=== PATIENT | male | born 1960 | race Two or more races ===

== ENCOUNTER → 2024-11-01 | Outpatient (CLI) | payer MEDICAID, SELFPAY ==
--- NOTE | 2024-11-01 13:47 | XR_ITS ---
Examination: Shoulder,left, 3 views Technique: Shoulder AP internal rotation, AP external rotation, Y view shoulder, 3 views Exam date and time :November 01, 2024 1323 hours INDICATIONS: Shoulder pain beginning 10 days ago. FINDINGS: Moderate narrowing glenohumeral joint Mild calcific tendinitis No fracture or shoulder dislocation IMPRESSION: Moderate narrowing glenohumeral joint Mild calcific tendinitis
== END | disposition home or self-care (01) ==
PROVIDERS: PCP Physician Assistant; Referring Provider Physician Assistant; Visit Provider Physician Assistant
DX: M75.32 Calcific tendinitis of left shoulder (principal); M25.812 Other specified joint disorders, left shoulder
CPT/HCPCS: 73030

== ENCOUNTER 2025-02-06 16:54 | Emergency (ER) | payer MEDICAID, SELFPAY ==
[2025-02-06 17:46] VITALS: BP 120/74; PULSE 76; RESP 18; TEMP 36.8; O2SAT 99; BMI 31.7
--- NOTE | 2025-02-06 17:49 | XR_ITS ---
Examination: CT abdomen with intravenous contrast CT pelvis with intravenous contrast 2-D coronal reconstructions 2-D sagittal reconstructions Date and time of exam:February 06, 2025 at 0814 hours INDICATIONS: Scrotal swelling and pain beginning 2 days ago. CTDI: vol (mGy) 7.13 DLP: (mGycm) 449 Technique: Multiple axial sections of the abdomen and pelvis have been obtained. 64 slice high-resolution scanner used. 3 mm axial sections have been obtained, post intravenous injection of 60 cc of Isovue-370 2-D sagittal, coronal reconstructions obtained. Low dose protocols were performed. One or more of the following dose reduction techniques were used; automated exposure control, adjustment of the mA and/or KV according to patient size, use of iterative reconstruction technique. Findings: No liver or splenic lesions No gallstones. Aorta normal size Mild perinephric stranding Small fat-containing umbilical hernia Normal appendix. Intact urinary bladder. Cellulitis left groin left perineum extending into the scrotal sac No soft tissue abscess IMPRESSION: Prominent cellulitis left groin left perineum extending into the scrotum, recommend testicular sonography follow-up
--- NOTE | 2025-02-06 17:49 | XR_ITS ---
Examination: PA lateral chest 2 views TECHNIQUE: Upright PA and lateral chest 2 views Date and time: February 06, 2025 1813 hours Comparison October 20, 2008 INDICATIONS: Increasing body swelling over the last 2 days. FINDINGS: Normal heart size. Lungs are clear. Mild thoracic spondylosis IMPRESSION: No active disease.
--- NOTE | 2025-02-06 17:49 | PD.EDRME ---
Rapid Medical Screening Exam RME Arrival date/time: 02/06/25 16:54 64-year-old male presents to the emergency department today with complaints of swelling and pain to his inguinal region patient has cellulitis and swelling inguinal region Chief Complaint: Flu Like Symptoms Vital signs: Vital Signs Temperature 98.3 F 02/06/25 17:46 Pulse Rate 76 02/06/25 17:46 Respiratory Rate 18 02/06/25 17:46 Blood Pressure 120/74 02/06/25 17:46 Pulse Oximetry (%) 99 02/06/25 17:46 Oxygen Delivery Method Room Air 02/06/25 17:46
[2025-02-06] MEDS: HYDROcodone/APAP 5/325 TABLET 1 TAB PO (18:06)
[2025-02-06 18:39] LABS: Lactate (Lactic Acid) 2.1 mMol/L (0.4-2.0)
[2025-02-06 18:41] LABS: Basophils # (Auto) 0.1 Thou/mm3 (0.0-0.2); Basophils % (Auto) 0 % (0-2.5); Eosinophils # (Auto) 0.1 Thou/mm3 (0.0-0.5); Eosinophils % (Auto) 0 % (0-10); Hematocrit 41.2 % (41.0-53.0); Hemoglobin 14.2 g/dL (13.5-16.0); Immature Granulocytes % (Auto) 1 % (0-0); Immature Granulocytes Auto 0.22 Thou/mm3 (0.00-0.00); Lymphocytes # (Auto) 1.3 Thou/mm3 (1.0-4.8); Lymphocytes % (Auto) 6 % (10-50); Mean Corpuscular HGB Conc 34.5 g/dl (31.0-37.0); Mean Corpuscular Volume 87 fL (80-100); Monocytes # (Auto) 1.4 Thou/mm3 (0.0-0.8); Monocytes % (Auto) 7 % (0-12); Neutrophils # (Auto) 17.2 Thou/mm3 (1.8-7.7); Neutrophils % (Auto) 85 % (37-80); Nucleated Red Blood Cell % 0 /100 WBC (0); Platelet Count 171 Thou/mm3 (140-440); RDW Standard Deviation 43.6 fL (35.1-43.9); Red Blood Count 4.73 Miln/mm3 (4.50-5.90); White Blood Count 20.2 Thou/mm3 (3.8-10.6)
[2025-02-06 19:01] LABS: Glucose Estimated Average 123 mg/dL (80-131); Hemoglobin A1C 5.9 % Hgb (4.8-6.0)
[2025-02-06 19:10] LABS: Alanine Aminotransferase 16 U/L (10-49); Albumin, Serum 4.3 gm/dL (3.4-4.8); Albumin/Globulin Ratio 1.5 (1.2-2.2); Alkaline Phosphatase 63 U/L (46-116); Anion Gap 12 (7-16); Aspartate Amino Transferase 14 U/L (0-34); BUN/Creatinine Ratio 12 Ratio (12-20); Bilirubin,Total 1.3 mg/dL (0.3-1.2); Blood Urea Nitrogen 14 mg/dL (9-23); Calcium 8.6 mg/dL (8.3-10.6); Calcium (Corrected) 8.6 mg/dL (8.5-10.1); Carbon Dioxide 21.8 mMol/L (20.0-31.0); Chloride 98 mMol/L (98-107); Creatinine (Component) 1.2 mg/dL (0.6-1.3); Estimated Creatinine Clearance 61.6 mL/min (>60); Globulin 2.8 gm/dL (2.3-3.5); Glucose 187 mg/dL (74-106); Osmolality,Calculated 270 (275-295); Potassium 4.2 mMol/L (3.4-5.1); Procalcitonin 0.83 ng/ml (0.0-0.49); Sodium 132 mMol/L (136-145); Total Protein 7.1 gm/dL (5.7-8.2); eGFR > 60 See Note
--- NOTE | 2025-02-06 19:56 | PD.EDABDPN ---
ED Abdominal Pain RME/HPI General Chief Complaint: Flu Like Symptoms Stated complaint: FLU LIKE SYMPTOMS, PELVIC PAIN Time seen by provider: 02/06/25 19:09 Arrival date/time: 02/06/25 16:54 Limitations: no limitations RME / HPI RME / HPI narrative: DR. MALAGON MAIN ED EVALUATION: 64 year old male with past medical history significant for diabetes mellitus type 2, hypertension, and hypercholesterolemia presents to the Emergency Department with complaint of swelling and pain to his inguinal area. Related Data Home Medications ?Medication ?Instructions ?Recorded ?Confirmed lovastatin 20 mg tablet 20 mg PO HS #0 tabs 05/07/15 03/06/23 lisinopril 20 mg tablet 20 mg PO QDAY #0 tabs 10/13/16 03/06/23 pantoprazole 40 mg tablet,delayed 40 mg PO QDAY ##0 10/13/16 03/06/23 release (Protonix) tamsulosin 0.4 mg capsule 0.4 mg PO QDAY 03/27/20 03/06/23 finasteride 5 mg tablet 5 mg PO QDAY 05/13/22 03/06/23 Allergies Allergy/AdvReac Type Severity Reaction Status Date / Time No Known Allergies Allergy Verified 12/01/22 16:47 Review of Systems Review of Systems Systems Reviewed: All systems reviewed, normal except as documented Narrative Review of Systems: GEN: No fever, no chills, no weight loss EYES: No discharge, no visual changes, no pain HEENT: No ear pain, no congestion, no sore throat PULM: No shortness of breath, no cough, no congestion CV: No chest pain, no dyspnea on exertion, no palpitations GI: No nausea, no vomiting, no diarrhea, no pain, no constipation : No frequency, no urgency and no dysuria MUSC/SKEL: No joint pain, no back pain SKIN: No rash. + swelling and pain to his inguinal area PSYCH: No hallucinations, no depression HEME/LYMPH: No easy bleeding or bruising tendencies NEURO: No weakness, no headache Past Medical History Past Medical History CARDIAC: Positive Hypercholesterolemia and Hypertension ENT: Positive Cataracts (OD IOL) ENDOCRINE: Positive Endocrine Disorders and Diabetes Mellitus Type 2 Family History FAMILY HISTORY: Positive Family Cardiac Disorders (father DIAZ) Surgical History SURGICAL: Positive Eye Surgery (Bleph/Pterygium) Social History SMOKING STATUS: Never smoker SUBSTANCE USE: does not use ALCOHOL: Never ED Exam General Limitations: Present no limitations General appearance: Present alert and other (Slightly uncomfortable but not toxic appearing. Not diaphoretic.) Head Head exam: Present atraumatic, normocephalic and normal inspection Eye Eye exam: Present normal appearance and EOMI ENT ENT exam: Present normal exam, normal oropharynx and mucous membranes moist Neck Neck exam: Present normal inspection, full ROM and trachea midline Chest Chest inspection: Present normal inspection and symmetric chest wall rise Respiratory Respiratory exam: Present normal lung sounds bilaterally Cardiovascular Cardiovascular exam: Present regular rate, normal rhythm and normal heart sounds Abdominal Exam Abdominal exam: Present soft and normal bowel sounds Abdominal tenderness: Present suprapubic (Minimal tenderness palpation over the erythema over the suprapubic area.) exam: Present normal testicular lie; Absent testicular tenderness, urethral discharge or scrotal swelling Expanded Exam exam: Present other (cellulitis and swelling inguinal region) image:  1. 15 cm x 6 cm well-demarcated erythema. No fluctuance. No drainage. No scrotal edema, tenderness palpation, or overlying crepitus. Perineal area is visualized without tenderness or erythema. Extremities Exam Extremities exam: Present normal inspection and full ROM Back Exam Back exam: Present normal inspection and full ROM Neurological Exam Neurological exam: Present alert, oriented X3 and CN II-XII intact Psychiatric Psychiatric exam: Present normal affect and normal mood Skin Skin exam: Present erythema and other (See scrotal exam) Course Course Course Narrative: 2120: Sepsis alert initiated. Orders made at this time are congruent with ED Adult Sepsis Order List. Re-evaluation is to be completed. 2204: Sepsis reassessment performed consisting of lab review, vitals, physical exam including auscultation of heart, lungs, and visual evaluation of capillary refills, mucosal membranes and extremities. Quality Measures none Orders Category Date Time Status Bedside COVID-19 Antigen Test NOW Care 02/06/25 17:49 Completed Bedside Influenza A&B Antigen Test NOW Care 02/06/25 17:[address] Screening NOW Care 02/06/25 17:49 Completed Hourly Team Members STAT Care 02/06/25 21:18 Completed Continuous Pulse Oximetry STAT Care 02/06/25 21:18 Completed EKG (ED ONLY) *Do not use* NOW Care 02/06/25 21:18 Completed In and Out Catheter X1PRN Care 02/06/25 21:18 Completed Insert IV NOW Care 02/06/25 21:18 Completed NPO STAT Care 02/06/25 21:18 Completed Strict Intake and Output Routine Care 02/06/25 21:[address] abdomen pelvis w con Stat Exams 02/06/25 17:49 Completed EKG (ED Only) Stat Exams 02/06/25 21:18 Draft US testicular Stat Exams 02/06/25 20:52 Completed XR chest 2V Stat Exams 02/06/25 17:49 Completed A1C [Glycohemoglobin w (eAG)] Stat Lab 02/06/25 18:30 Completed B-Type Natriuretic Peptide Stat Lab 02/06/25 21:39 Completed Blood Culture (Lab) Stat Lab 02/06/25 18:30 Received Blood Culture (Lab) Stat Lab 02/06/25 21:39 Received CBC Stat Lab 02/06/25 18:30 Completed Comprehensive Metabolic Panel Stat Lab 02/06/25 18:30 Completed LDH (Lactate Dehydrogenase) Stat Lab 02/06/25 21:44 Completed Lactate (Lactic Acid) Stat Lab 02/06/25 18:30 Completed Lactic Acid, 3 HR Stat Lab 02/06/25 21:44 Completed Lipase Stat Lab 02/06/25 21:44 Completed Magnesium Stat Lab 02/06/25 21:44 Completed Partial Thromboplastin Time Stat Lab 02/06/25 21:44 Completed Phosphorous Stat Lab 02/06/25 21:44 Completed Procalcitonin Stat Lab 02/06/25 18:30 Completed Prothrombin Time with INR Stat Lab 02/06/25 21:44 Completed Troponin I Stat Lab 02/06/25 21:44 Completed Urinalysis Stat Lab 02/06/25 19:45 Completed Urine Culture Stat Lab 02/06/25 19:45 Received Acetaminophen Ivpb [Ofirmev Inj] Med 02/07/25 02:09 Discontinued 1,000 mg in 100 ml IV X1 Clindamycin/Ns 600 mg Ivpb [Cleocin/Ns Ivpb] Med 02/07/25 02:09 Discontinued 600 mg in 50 ml IV Q8HR HYDROcodone*/APAP 5/325 [[place] 5/325] Med 02/06/25 17:56 Discontinued 1 tab PO X1 ONE Ketorolac Inj [Toradol Inj] Med 02/07/25 02:08 Discontinued 30 mg IVP X1 ONE Sodium Chloride 0.9% 1000 ml [Ns] 1,776 ml Med 02/06/25 21:17 Discontinued IV 1,776 mls/hr Vancomycin Inj 1,000 mg Med 02/06/25 21:16 Discontinued Sodium Chloride 0.9% 250 ml [Ns] 250 ml IV X1 cefTAZidime 1 gm Med 02/06/25 21:30 Discontinued Sodium Chloride 0.9% [Ns] 50 ml IV X1 cefTRIAXone/D5w 1gm IV premix [Rocephin/D5w 1gm IV Med 02/06/25 20:04 Discontinued premix] 1 gm in 50 ml IV X1 Oxygen Delivery NOW RT 02/06/25 21:18 Completed Vital Signs Vital signs: Vital Signs Temperature 98.3 F 02/06/25 17:46 Pulse Rate 76 02/06/25 17:46 Respiratory Rate 18 02/06/25 17:46 Blood Pressure 120/74 02/06/25 17:46 Pulse Oximetry (%) 99 02/06/25 17:46 Oxygen Delivery Method Room Air 02/06/25 17:46 Abdominal Pain MDM MDM Narrative MDM Narrative:: 64-year-old male with history of type 2 diabetes on metformin coming in with 2-day history of suprapubic cellulitis extending into the left groin area. Patient has a white count of 20,000 with an elevated lactate of 2.1. Procalcitonin is elevated at 0.83. CT scan showing cellulitis with extension into the perineum however clinically the patient does not have foreign years gangrene and testicular ultrasound shows no scrotal or testicular vomit at this time. Patient remains normotensive without tachycardia, the patient is given 30 mL/kg ideal body weight normal saline bolus and treated with 2 g of cefepime and 1 g of vancomycin. Pain is controlled at this time. Urinalysis has 1+ protein otherwise no evidence of UTI. Sodium is slightly decreased at 132 and glucose slightly elevated 187 0034: Spoke with [facility] transfer center. Awaiting callback. 0209: Patient now has a fever of 101.2. Tylenol ordered. He is not hypotensive or tachycardic. 0257: Dr. Chong, hospitalist from [facility], accepts the patient for transfer. Jennifer Gregory am scribing for and in the presence of Dr. Malagon. Patient data External records reviewed:: [facility] previous records (Reviewed last urology note by Dr. Boateng, dated 03/07/23.) Clinical information provided by:: patient Social determinants that could affect healthcare access:: none Patient has the following chronic illnesses:: Diabetes mellitus type 2, hypertension, and hypercholesterolemia. How is presenting disease/condition affected by chronic disease/condition?: exacerbated by Evaluation data The following diagnostics were reviewed and interpreted by me:: lab results and radiology exam(s) Lab and/or radiology exams considered but not ordered:: none Interpretation Summary: Procedure(s): US testicular Accession Number(s): [id number] cc: Elyssa Moss; Misael Tony MD; Noah Alamo MD~ Examination: Testicular sonography TECHNIQUE: Amaral scale sonographic images testes, assessment arterial inflow and venous outflow Doppler spectrum analysis color flow analysis Examination time: February 06, 2025 205 hours INDICATIONS: Left groin swelling and pain 2 days FINDINGS: Right testis is 4.1 cm epididymis 22 mm Right epididymal cyst 16 mm Arterial flow to the testicle No testicular mass Mild hydrocele. Left testis is 3.2 cm epididymis 19 mm Multiple epididymal cysts, the largest 8 mm Appendix testis 12 x 10 mm Arterial flow to the testicle Testicular cyst 4 mm Appendix testis 12 mm Moderate hydrocele Left groin edema with mildly prominent lymph nodes, no left groin abscess IMPRESSION: No testicular torsion or testicular mass Bilateral benign epididymal cysts Small testicular cyst Moderate left hydrocele Left groin edema no abscess Dictated By: Misael Tony MD Procedure(s): XR chest 2V Accession Number(s): [id number] cc: Elyssa Moss; Jordan (MATTHEW),Chencho CASTRO; Misael Tony MD~ Examination: PA lateral chest 2 views TECHNIQUE: Upright PA and lateral chest 2 views Date and time: February 06, 2025 1813 hours Comparison October 20, 2008 INDICATIONS: Increasing body swelling over the last 2 days. FINDINGS: Normal heart size. Lungs are clear. Mild thoracic spondylosis IMPRESSION: No active disease. Dictated By: Misael Tony MD Procedure(s): CT abdomen pelvis w con Accession Number(s): [id number] cc: Elyssa Moss; Jordan (MATTHEW),Chencho CASTRO; Misael Tony MD~ Examination: CT abdomen with intravenous contrast CT pelvis with intravenous contrast 2-D coronal reconstructions 2-D sagittal reconstructions Date and time of exam:February 06, 2025 at 0814 hours INDICATIONS: Scrotal swelling and pain beginning 2 days ago. CTDI: vol (mGy) 7.13 DLP: (mGycm) 449 Technique: Multiple axial sections of the abdomen and pelvis have been obtained. 64 slice high-resolution scanner used. 3 mm axial sections have been obtained, post intravenous injection of 60 cc of Isovue-370 2-D sagittal, coronal reconstructions obtained. Low dose protocols were performed. One or more of the following dose reduction techniques were used; automated exposure control, adjustment of the mA and/or KV according to patient size, use of iterative reconstruction technique. Findings: No liver or splenic lesions No gallstones. Aorta normal size Mild perinephric stranding Small fat-containing umbilical hernia Normal appendix. Intact urinary bladder. Cellulitis left groin left perineum extending into the scrotal sac No soft tissue abscess IMPRESSION: Prominent cellulitis left groin left perineum extending into the scrotum, recommend testicular sonography follow-up Dictated By: Misael Tony MD Medications / Prescriptions Medications or Prescriptions considered but not ordered:: none Medication administrations:: Medication Administration History Discontinued Medications Hydrocodone Bitart/Acetaminophen (Hydrocodone/Apap 5/325 Tablet) 1 tab PO X1 ONE Stop: 02/06/25 17:57 Last Admin: 02/06/25 18:06 Dose: 1 tab Documented By: Ceftriaxone Sodium/Dextrose (Rocephin/D5w 1gm Iv Premix) 1 gm in 50 mls @ 100 mls/hr IV X1 ONE Stop: 02/06/25 20:33 Last Admin: 02/06/25 22:09 Dose: Not Given Documented By: AM Non-Admin Reason: Discontinued Vancomycin HCl 1,000 mg/ (Sodium Chloride) 250 mls @ 150 mls/hr IV X1 ONE Stop: 02/06/25 22:55 Last Infusion: 02/07/25 02:02 Dose: Infused Documented By: Admin: 02/06/25 22:50 Dose: 150 mls/hr Documented By: AM Sodium Chloride (Ns) 1,776 mls @ 1,776 mls/hr 30 ml/kg infuse over 60 min (1776 ml) IV .Q1H ONE Stop: 02/06/25 22:16 Last Infusion: 02/07/25 00:45 Dose: Infused Documented By: Admin: 02/06/25 22:08 Dose: 1,776 mls/hr Documented By: AM Ceftazidime 1 gm/ Sodium (Chloride) 50 mls @ 100 mls/hr IV X1 ONE Stop: 02/06/25 21:59 Last Infusion: 02/06/25 22:43 Dose: Infused Documented By: Admin: 02/06/25 22:09 Dose: 100 mls/hr Documented By: AM Acetaminophen (Ofirmev Inj) 1,000 mg in 100 mls @ 250 mls/hr IV X1 ONE Stop: 02/07/25 02:32 Last Infusion: 02/07/25 03:13 Dose: Infused Documented By: Admin: 02/07/25 02:45 Dose: 250 mls/hr Documented By: AM Clindamycin/Sodium Chloride (Cleocin/Ns Ivpb) 600 mg in 50 mls @ 100 mls/hr IV Q8HR TREVON Stop: 02/14/25 02:08 Ketorolac Tromethamine (Ketorolac Inj 30 Mg/Ml Vial) 30 mg IVP X1 ONE Stop: 02/07/25 02:09 Last Admin: 02/07/25 02:33 Dose: 30 mg Documented By: AM see above Consultations Consultation(s) initiated? (list below): Yes Diagnosis Differential diagnosis abdominal pain: other (testicular cyst, cellulitis, groin edema) Most likely diagnosis given after review of the tests above:: see below Admission Indicated Admission indicated?: not indicated Explain why admission is indicated or not indicated:: Patient needs higher level of care and will be transferred. Admission Request Was there a request for admission?: No Disposition Plan Disposition Plan: Transfer Critical Care Time Critical Care Time Critical Care Time: Yes Total Critical Care Time (min.): 30 Attestation: For sepsis The high probability of sudden, clinically significant deterioration in the patient?s condition required the highest level of my preparedness to intervene urgently. The services I provided to this patient were to treat and/or prevent clinically significant deterioration. Services included the following: chart data review, reviewing nursing notes and/or old charts, documentation time, human performance consultant collaboration regarding findings and treatment options, medication orders and management, direct patient care, vital sign assessments and ordering, interpreting and reviewing diagnostic studies and lab tests. Aggregate critical care time includes only time during which I was engaged in work directly related to the patient?s care, as described above, whether at bedside or elsewhere in the Emergency Department. It did not include time spent performing other reported procedures or the services of residents, students, nurses or physician assistants. Discharge Plan Plan Patient Disposition: [facility] Pt Being Transferred to: [facility] Patient condition on transfer: Stable Prescriptions/Referrals Prescriptions/Med Rec: No Action tamsulosin 0.4 mg capsule 0.4 mg PO QDAY finasteride 5 mg tablet 5 mg PO QDAY lovastatin 20 MG tablet 20 mg PO HS Qty: 0 pantoprazole [Protonix] 40 MG tablet,delayed release (DR/EC) 40 mg PO QDAY Qty: 0 Patient Comments: TO SUPPRESS [employer]STR[employer] SECRETIONS lisinopril 20 MG tablet 20 mg PO QDAY Qty: 0 Referrals: Elyssa Moss PA-C [Primary Care Provider] - In 1 week Problem List Clinical Impression: Sepsis, Cellulitis, History of diabetes mellitus Patient/Caregiver Discharge Instructions Print Language: Armenian Stand Alone Forms: Princess Award Info., Patient Portal Info Letter
[2025-02-06 19:59] LABS: Collection Type, Urine Clean Catch
--- NOTE | 2025-02-06 20:52 | XR_ITS ---
Examination: Testicular sonography TECHNIQUE: Amaral scale sonographic images testes, assessment arterial inflow and venous outflow Doppler spectrum analysis color flow analysis Examination time: February 06, 2025 205 hours INDICATIONS: Left groin swelling and pain 2 days FINDINGS: Right testis is 4.1 cm epididymis 22 mm Right epididymal cyst 16 mm Arterial flow to the testicle No testicular mass Mild hydrocele. Left testis is 3.2 cm epididymis 19 mm Multiple epididymal cysts, the largest 8 mm Appendix testis 12 x 10 mm Arterial flow to the testicle Testicular cyst 4 mm Appendix testis 12 mm Moderate hydrocele Left groin edema with mildly prominent lymph nodes, no left groin abscess IMPRESSION: No testicular torsion or testicular mass Bilateral benign epididymal cysts Small testicular cyst Moderate left hydrocele Left groin edema no abscess
--- NOTE | 2025-02-06 21:18 | EKG_ITS ---
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
[2025-02-06 21:32] VITALS: BP 112/63; PULSE 81; RESP 16; TEMP 37.6; O2SAT 99
[2025-02-06 21:35] LABS: Reflex Lactate? Y
[2025-02-06 21:50] LABS: Bilirubin,Urine Negative (Negative); Blood,Urine Negative (Negative); Clarity,Urine Clear (Clear/Hazy); Color,Urine Yellow (Lt Yel-Yel); Glucose, Urine Trace (Negative); Ketones,Urine Negative (Negative); Leukocyte Esterase,Urine Negative (Negative); Nitrite,Urine Negative (Negative); Protein,Urine 1+ (Neg - Trace); RBC,Urine 3 /hpf (0-3); Specific Gravity,Urine 1.023 (1.001-1.035); Squamous Epithelial Cell,Urine 1 /hpf (0-5); Urobilinogen,Urine Negative mg/dL (0.0-1.0); WBC,Urine 4 /hpf (0-5)
[2025-02-06 21:53] LABS: Lactic Acid, 3 HR 1.8 mMol/L (0.4-2.0)
[2025-02-06] MEDS: SODIUM CHLORIDE 0.9% 1000 ML 1,776 ML 1776 ML IV (22:08)
[2025-02-06 22:12] LABS: INR 1.1 (0.9-1.3); Prothrombin Time 12.1 Seconds (9.0-12.2)
[2025-02-06 22:13] VITALS: PULSE 80; RESP 16; RESP 96
[2025-02-06 22:14] LABS: B-Type Natriuretic Peptide 59 pg/mL (0-100)
[2025-02-06 22:26] LABS: Lipase 25 U/L (12-53); Magnesium 1.8 mg/dL (1.6-2.6); Phosphorous 2.6 mg/dL (2.4-5.1); Troponin I < 0.020 ng/mL (0.0-0.045)
[2025-02-06 22:38] LABS: LDH (Lactate Dehydrogenase) 157 U/L (120-246)
[2025-02-06] MEDS: Vancomycin Inj 1,000 MG in SODIUM CHLORIDE 0.9% 250 ML 250 ML 150 MG IV (22:50)
[2025-02-06 23:12] VITALS: BP 138/82; PULSE 82; RESP 16; TEMP 37.8; O2SAT 97
--- NOTE | 2025-02-07 00:38 | PC.NURSE ---
2355 [facility] FILLMORE CONTACTED. 0030 [facility] RETURNED CALL SPEAKING WITH DR MIXON.
[2025-02-07 02:00] VITALS: BP 119/66; PULSE 89; RESP 16; TEMP 38.4; O2SAT 95
[2025-02-07 02:33] VITALS: TEMP 38.4
[2025-02-07] MEDS: KETOROLAC INJ 30 MG/ML VIAL IVP (02:33)
[2025-02-07] MEDS: ACETAMINOPHEN IVPB 1,000 MG/100 ML VIAL 250 MG IV (02:45)
--- NOTE | 2025-02-07 02:57 | PC.NURSE ---
0255 RECEIVED CALL FROM KONRAD CUMMINS ACCEPTED TO [facility] BY DR CANDELARIO. AWAITING A BED AT THIS TIME.
[2025-02-07 03:40] VITALS: TEMP 37.5
[2025-02-07 04:40] VITALS: BP 95/61; PULSE 66; RESP 19; TEMP 37; O2SAT 97
--- NOTE | 2025-02-07 05:03 | PC.NURSE ---
Report given to STEPAN Larson at [facility].
== END 2025-02-07 05:08 | disposition short-term general hospital (02) ==
PROVIDERS: Nurse Practitioner Primary Care; Emergency Provider Emergency Medicine; PCP Physician Assistant
DX: A41.9 Sepsis, unspecified organism (principal); L03.314 Cellulitis of groin; E11.9 Type 2 diabetes mellitus without complications; N44.2 Benign cyst of testis; N43.3 Hydrocele, unspecified; I10 Essential (primary) hypertension; E78.00 Pure hypercholesterolemia, unspecified; Z75.1 Person awaiting admission to adequate facility elsewhere
CPT/HCPCS: 36415; 71046; 74177; 76870; 80053; 81001; 83036; 83605; 83615; 83690; 83735; 83880; 84100; 84145; 84484; 85025; 85610; 85730; 87040; 87077; 87086; 87186; 87400; 87811; 93005; 96374; 99285; A4649; J0131; J0713; J1885; J3371; J7030; J7050; Q9967; A9270

== ENCOUNTER → 2025-09-11 | Outpatient (CLI) | payer MEDICAID, SELFPAY ==
--- NOTE | 2025-09-11 15:46 | XR_ITS ---
Examination: Lumbar spine, 5 views Technique: Lumbar spine AP, lateral, coned lateral lower lumbar spine, bilateral obliques 5 views Exam date and time: September 11, 2025, 1607 hours INDICATIONS: Injury to lower back 5 days ago, lower back pain. FINDINGS: Adequate alignment lumbar vertebral bodies. No lumbar fracture. Moderate lumbar spondylosis. No spondylolisthesis. Mild disc narrowing L5-S1 IMPRESSION: Moderate lumbar spondylosis No acute lumbar fracture
--- NOTE | 2025-09-11 15:46 | XR_ITS ---
EXAMINATION: Cervical spine, 5 views Technique: Cervical spine AP, AP odontoid, lateral, bilateral obliques, 5 views Exam date and time: September 11, 2025, 1607 hours INDICATIONS: Injury to the neck 5 days ago with neck pain. FINDINGS: Satisfactory limit cervical vertebral bodies. No cervical fracture. Intact odontoid. Mild disc narrowing C5-C6 Mild to moderate cervical spondylosis No critical neural foraminal stenosis IMPRESSION: No acute cervical fracture
--- NOTE | 2025-09-11 15:46 | XR_ITS ---
EXAMINATION: Thoracic spine 3 views TECHNIQUE: AP lateral, lateral upper dorsal spine 3 views Date and time: September 11, 2025, 1625 hours INDICATIONS: Injury to the back 5 days ago, back pain. FINDINGS: Satisfactory line midthoracic vertebral bodies. Moderate thoracic spondylosis. No acute thoracic fracture. Mild to moderate diffuse thoracic disc narrowing IMPRESSION: No acute thoracic fracture
== END | disposition home or self-care (01) ==
LOC: CDIM 15:41
PROVIDERS: Referring Provider Physician Assistant; Visit Provider Physician Assistant
DX: S39.92XA Unspecified injury of lower back, initial encounter (principal); S19.9XXA Unspecified injury of neck, initial encounter; S29.9XXA Unspecified injury of thorax, initial encounter; X58.XXXA Exposure to other specified factors, initial encounter; M47.816 Spondylosis without myelopathy or radiculopathy, lumbar region
CPT/HCPCS: 72050; 72072; 72110